=== PATIENT | male | born 1990 | race Caucasian/White ===

== ENCOUNTER 2017-04-03 21:46 | Emergency (ER) | payer MEDICAID ==
[~2017-04-03] VITALS: Ht 193 cm; Wt 95.3 kg
[2017-04-04 01:24] VITALS: BP 144/96
== END 2017-04-04 01:28 | disposition home or self-care (01) ==
LOC: ER 21:46
DX: J32.9 Chronic sinusitis, unspecified (principal); F12.10 Cannabis abuse, uncomplicated; M54.2 Cervicalgia
CPT/HCPCS: 70450; 72125

== ENCOUNTER 2022-03-23 14:02 | Emergency (ER) | payer MEDICAID, OTHER ==
[~2022-03-23] VITALS: Ht 190.5 cm; Wt 108.4 kg
[2022-03-23 15:03] VITALS: BP 138/82
[2022-03-23] MEDS ORDERED: BACL10TA PO (16:20)
[2022-03-23] MEDS ORDERED: IBUP800T27 PO (16:20)
== END 2022-03-23 16:27 | disposition home or self-care (01) ==
LOC: ER 14:02
DX: S16.1XXA Strain of muscle, fascia and tendon at neck level, initial encounter (principal); F12.90 Cannabis use, unspecified, uncomplicated; V23.49XA Other motorcycle driver injured in collision with car, pick-up truck or van in traffic accident, initial encounter; Y93.89 Activity, other specified; Y92.89 Other specified places as the place of occurrence of the external cause; Y99.8 Other external cause status
CPT/HCPCS: 72040; 73562